=== PATIENT | female | born 1965 | race Caucasian/White ===

== ENCOUNTER 2017-12-25 21:00 | Emergency (ER) | payer OTHER | END 2017-12-25 23:06 | disposition home or self-care (01) | LOC: FTE 21:00 | DX: S90.562A Insect bite (nonvenomous), left ankle, initial encounter (principal); W57.XXXA Bitten or stung by nonvenomous insect and other nonvenomous arthropods, initial encounter; Y92.9 Unspecified place or not applicable | CPT/HCPCS: 99283; Z7502 ==

== ENCOUNTER 2018-09-16 20:50 | Emergency (ER) | payer OTHER ==
[2018-09-16] MEDS: METHYLPREDNISOLONE 125 MG INJ IM (23:01)
== END 2018-09-16 23:30 | disposition home or self-care (01) ==
LOC: FTE 20:50
DX: S80.862A Insect bite (nonvenomous), left lower leg, initial encounter (principal); S90.562A Insect bite (nonvenomous), left ankle, initial encounter; W57.XXXA Bitten or stung by nonvenomous insect and other nonvenomous arthropods, initial encounter; Y92.9 Unspecified place or not applicable
CPT/HCPCS: 96372; 99284-25

== ENCOUNTER 2018-10-25 14:14 | Emergency (ER) | payer OTHER ==
[2018-10-25 15:27] LABS: ADD UMIC NO; UR ASCORBIC ACID 40 mg/dL (NEGATIVE); UR BILIRUBIN (Dip) NEGATIVE (NEGATIVE); UR BLOOD (Dip) NEGATIVE (NEGATIVE); UR CLARITY CLEAR (CLEAR); UR COLOR YELLOW (YELLOW); UR GLUCOSE (Dip) NEGATIVE (NEGATIVE); UR KETONES (Dip) NEGATIVE (NEGATIVE); UR LEUKOCYTE ESTERASE (Dip) NEGATIVE Leu/ul (NEGATIVE); UR NITRITE (Dip) NEGATIVE (NEGATIVE); UR SPECIFIC GRAVITY (Dip) 1.023 (1.003-1.030); UR TOTAL PROTEIN (Dip) NEGATIVE (NEGATIVE); UR UROBILINOGEN (Dip) NEGATIVE (NEGATIVE)
== END 2018-10-25 16:07 | disposition home or self-care (01) ==
LOC: FTE 14:14
DX: R30.0 Dysuria (principal)
CPT/HCPCS: 81003; 81025; 99283